=== PATIENT | female | born 1945 | race Caucasian/White ===

== ENCOUNTER 2017-07-20 18:07 | Emergency (ER) | payer MEDICARE, BC ==
[2017-07-20 18:20] VITALS: BP 150/61
--- NOTE | 2017-07-20 18:42 | ER Document Report ---
ED Medical Screen (RME) - General Chief Complaint: Swelling of Lower Extremity Stated Complaint: LEFT LEG PAIN Time Seen by Provider: 07/20/17 18:35 Mode of Arrival: Wheelchair Information source: Patient TRAVEL OUTSIDE OF THE [place] IN LAST 30 DAYS: No - HPI Patient complains to provider of: L leg pain and swelling Onset: Other - Pt noticed red area on anterior aspect of L leg a few days ago - - states L leg has gotten more painful and red since - Related Data Allergies/Adverse Reactions: Sulfa (Sulfonamide Antibiotics) Allergy (Verified 07/20/17 18:09) Home Medications: Current Home Medications Losartan Potassium [Losartan Potassium] 1 tab PO DAILY 07/20/17 [History] Past Medical History - Social History Chew tobacco use (# tins/day): No Frequency of alcohol use: None Drug Abuse: None Renal/ Medical History: Denies: Hx Peritoneal Dialysis - Immunizations Hx Diphtheria, Pertussis, Tetanus Vaccination: Yes Physical Exam - Vital signs Vitals: Temp Pulse Resp BP Pulse Ox 97.6 F 69 18 150/61 H 98 07/20/17 18:20 07/20/17 18:20 07/20/17 18:20 07/20/17 18:20 07/20/17 18:20 Course - Vital Signs Vital signs: Temp Pulse Resp BP Pulse Ox 97.6 F 69 18 150/61 H 98 07/20/17 18:20 07/20/17 18:20 07/20/17 18:20 07/20/17 18:20 07/20/17 18:20
[2017-07-20 19:16] LABS: ABSOLUTE BASOPHILS # (AUTO) 0.1 10^3/uL (0.0-0.2); ABSOLUTE EOSINOPHILS # (AUTO) 0.2 10^3/uL (0.0-0.6); ABSOLUTE LYMPHOCYTES (AUTO) 2.6 10^3/uL (0.5-4.7); ABSOLUTE MONOCYTES (AUTO) 0.9 10^3/uL (0.1-1.4); ABSOLUTE NEUT (AUTO) 3.8 10^3/uL (1.7-8.2); BASOPHILS % (AUTO) 1.4 % (0-2); EOSINOPHILS % (AUTO) 3.2 % (0-6); HEMATOCRIT 43.5 % (36.0-47.0); HEMOGLOBIN 14.7 g/dL (12.0-15.5); HGB HCT DIFFERENCE 0.6; LYMPHOCYTES % (AUTO) 34.3 % (13-45); MEAN CORPUSCULAR HGB CONC 33.8 g/dL (32.0-36.0); MEAN CORPUSCULAR VOLUME 95 fl (80-97); MONOCYTES % (AUTO) 11.4 % (3-13); RED CELL DISTRIBUTION WIDTH 13.4 % (11.5-14.0); SEGMENTED NEUTROPHILS % (AUTO) 49.7 % (42-78); WHITE BLOOD COUNT 7.6 10^3/uL (4.0-10.5)
--- NOTE | 2017-07-20 21:15 | RADIOLOGY REPORT (SQ) ---
EXAM DESCRIPTION: VENOUS UNILATERAL LOWER COMPLETED DATE/TIME: 07/20/2017 9:00 pm REASON FOR STUDY: L leg redness and swelling COMPARISON: None. TECHNIQUE: Dynamic and static chew scale and color images acquired of the left leg venous system. Se lected spectral images acquired with additional compression and augmentation maneuvers. The contralat eral common femoral vein and saphenofemoral junction were also imaged. Images stored on PACS. LIMITATIONS: None. FINDINGS: COMMON FEMORAL: Normal phasicity, compression and augmentation. No visualized echogenic ma terial on chew scale. No defects on color images. FEMORAL: Normal compression and augmentation. No visualized echogenic material on chew scale. No defe cts on color images. POPLITEAL: Normal compression, augmentation. No visualized echogenic material on chew scale. No defec ts on color images. CALF VESSELS: Normal compression, augmentation. No visualized echogenic material on chew scale. No de fects on color images. GSV and SSV: Normal compression, augmentation. No visualized echogenic material on chew scale. No def ects on color images. ANY DEEP VENOUS INSUFFICIENCY: Not evaluated. ANY EVIDENCE OF POPLITEAL CYST: No. OTHER: The patient- identified area of pain correlates to a cluster of thrombosed superficial varicos ities. CONTRALATERAL COMMON FEMORAL VEIN: Normal phasicity, compression and augmentation. No visualized echogenic material on chew scale. No de fects on color images. IMPRESSION: NO EVIDENCE OF DVT OR SVT IN THE LEFT LEG. THE PATIENT- IDENTIFIED AREA OF PAIN CORRELA JORDY TO A CLUSTER OF THROMBOSED SUPERFICIAL VARICOSITIES. TECHNICAL DOCUMENTATION: JOB ID: [id number] [employer]- All Rights Reserved
[2017-07-20] MEDS ORDERED: CEPHALEXIN 500 MG CAPSULE PO ONE (22:38)
--- NOTE | 2017-07-20 22:39 | ER Document Report ---
ED General - General Chief Complaint: Swelling of Lower Extremity Stated Complaint: LEFT LEG PAIN Time Seen by Provider: 07/20/17 18:35 Mode of Arrival: Wheelchair Information source: Patient Notes: This is a 72-year-old female that presents to the emergency room with erythema and tenderness along the anterior aspect of the left lower extremity. Patient denies any calf pain. Patient states that she does have chronic swelling of that extremity. Patient denies any chest pain or shortness of breath. TRAVEL OUTSIDE OF THE [place] IN LAST 30 DAYS: No - HPI Onset: Yesterday Onset/Duration: Gradual Quality of pain: Other - Tender to touch Severity: Mild Pain Level: Denies Associated symptoms: denies: Chest pain, Fever, Shortness of breath Exacerbated by: Denies Relieved by: Denies Similar symptoms previously: No Recently seen / treated by doctor: No - Related Data Allergies/Adverse Reactions: Sulfa (Sulfonamide Antibiotics) Allergy (Verified 07/20/17 18:09) Home Medications: Current Home Medications Losartan Potassium [Losartan Potassium] 1 tab PO DAILY 07/20/17 [History] Past Medical History - General Information source: Patient - Social History Smoking Status: Never Smoker Cigarette use (# per day): No Chew tobacco use (# tins/day): No Frequency of alcohol use: None Drug Abuse: None Lives with: Family Family History: None Patient has suicidal ideation: No Patient has homicidal ideation: No - Past Medical History Cardiac Medical History: Reports: Hx Hypertension Renal/ Medical History: Denies: Hx Peritoneal Dialysis Past Surgical History: Reports: Hx Cholecystectomy - Immunizations Hx Diphtheria, Pertussis, Tetanus Vaccination: Yes Review of Systems - Review of Systems Constitutional: denies: Chills, Fever EENT: No symptoms reported Cardiovascular: No symptoms reported Respiratory: No symptoms reported Gastrointestinal: No symptoms reported Genitourinary: No symptoms reported Female Genitourinary: No symptoms reported Musculoskeletal: See HPI Skin: See HPI Hematologic/Lymphatic: No symptoms reported Neurological/Psychological: No symptoms reported Physical Exam - Vital signs Vitals: Temp Pulse Resp BP Pulse Ox 97.6 F 69 18 150/61 H 98 07/20/17 18:20 07/20/17 18:20 07/20/17 18:20 07/20/17 18:20 07/20/17 18:20 Notes: Physical exam: GENERAL: HEAD: Atraumatic, normocephalic. EYES: Pupils equal round and reactive to light, extraocular movements intact, sclera anicteric, conjunctiva are normal. ENT: TMs normal, nares patent, oropharynx clear without exudates. Moist mucous membranes. NECK: Normal range of motion, supple without obvious mass or JVD. LUNGS: Breath sounds clear to auscultation bilaterally and equal. No wheezes rales or rhonchi. HEART: Regular rate and rhythm without murmurs, rubs or gallops. ABDOMEN: Soft, normoactive bowel sounds. No tenderness to palpation. No guarding, no rebound. No masses appreciated. EXTREMITIES: NEUROLOGICAL: Cranial nerves II through XII grossly intact. Normal speech, moving all extremities. PSYCH: Normal mood, normal affect. SKIN: Warm, Dry, normal turgor, no rashes or lesions noted. Course - Vital Signs Vital signs: Temp Pulse Resp BP Pulse Ox 97.6 F 69 18 150/61 H 98 07/20/17 18:20 07/20/17 18:20 07/20/17 18:20 07/20/17 18:20 07/20/17 18:20 - Laboratory Result Diagrams: 07/20/17 19:00 07/20/17 21:00 Laboratory results interpreted by me: 07/20/17 07/20/17 19:00 21:00 D-Dimer 0.63 H Sodium 146.1 H Chloride 110 H Est GFR (Non-Af Amer) 50 L AST 42 H - Diagnostic Test Radiology reviewed: Image reviewed, Reports reviewed - Lower extremity ultrasound shows no evidence of DVT Discharge - Discharge Clinical Impression: Cellulitis Condition: Stable Disposition: HOME, SELF-CARE Additional Instructions: As we discussed, the ultrasound showed no evidence of deep clots in the leg which is good. The ultrasound was suggestive of maybe some superficial phlebitis which is inflammation of the superficial veins. We are going to treat you just in case for an early cellulitis. For the next few days you could take a baby aspirin a day. Follow-up with your primary care doctor this week and bring a copy of today's lab tests as well as ultrasound report with you when you go. Return to the emergency room for any worsening pain, worsening redness, worsening swelling or any concerns or getting worse. Prescriptions: Cephalexin Monohydrate [Keflex 500 mg Capsule] 500 mg PO Q6H 7 Days #28 capsule Referrals: ARLETTE BOYER MD [Primary Care Provider] - Follow up as needed
[2017-07-20 22:56] LABS: ALANINE AMINOTRANSFERASE 22 U/L (9-52); ALKALINE PHOSPHATASE 90 U/L (38-126); ANION GAP 13 (5-19); ASPARTATE AMINO TRANSFERASE 42 U/L (14-36); BILIRUBIN,DIRECT 0.4 mg/dL (0.0-0.4); BILIRUBIN,TOTAL 0.8 mg/dL (0.2-1.3); BLOOD UREA NITROGEN 20 mg/dL (7-20); CALCIUM 9.6 mg/dL (8.4-10.2); CARBON DIOXIDE 23 mmol/L (22-30); CHLORIDE 110 mmol/L (98-107); CREATININE RESULT 1.07 mg/dL (0.52-1.25); GLUCOSE 90 mg/dL (75-110); POTASSIUM 4.3 mmol/L (3.6-5.0); SODIUM 146.1 mmol/L (137-145); TOTAL PROTEIN 7.4 g/dL (6.3-8.2)
== END 2017-07-20 23:51 | disposition home or self-care (01) ==
LOC: ER 18:07
DX: L03.90 Cellulitis, unspecified (principal); M79.605 Pain in left leg; Z88.2 Allergy status to sulfonamides; I10 Essential (primary) hypertension
CPT/HCPCS: 99284; 36415; 85025; 80053; 85379; 93971; A9270

== ENCOUNTER → 2017-10-11 | Outpatient (CLI) | payer MEDICARE, BC ==
[~2017-10-11] MED LIST: DIAZEPAM 5 MG TABLET ONE
--- NOTE | 2017-10-11 16:59 | RADIOLOGY REPORT (SQ) ---
EXAM DESCRIPTION: MRI LUMBAR SPINE WITHOUT COMPLETED DATE/TIME: 10/11/2017 2:12 pm REASON FOR STUDY: M54.16 RADICULOPATHY, LUMBAR REGION M54.16 RADICULOPATHY, LUMBAR REGION COMPARISON: None. TECHNIQUE: Sagittal and Axial imaging includes T1, T2, STIR and gradient echo sequences. Coronal T2/ HASTE imaging. LIMITATIONS: None. FINDINGS: VISUALIZED UPPER ABDOMEN: Limited evaluation. No acute or suspicious findings suggested. SEGMENTATION: The most inferior well-developed disc space is labeled L5-S1. ALIGNMENT: Convex rightward lumbar curvature VERTEBRAE: Intact. BONE MARROW: Normal. No marrow replacement or reactive changes. DISC SIGNAL: Diffuse decreased T2 weighted intervertebral disc signal POSTERIOR ELEMENTS: Generally intact. No pars defect evident. HARDWARE: None in the spine. CORD AND CONUS: Distal thoracic cord and conus are unremarkable. Conus is at the L1 level. No clump ing of lumbar nerve roots worrisome for old arachnoid adhesions. SOFT TISSUES: No aortic aneurysm seen. No bulky retroperitoneal adenopathy or mass. No paraspinal mas s or fluid. T10-11: Mild bilateral facet hypertrophy. No central or foraminal stenosis. T11-12: Mild bilateral facet hypertrophy. No central or foraminal stenosis. L1-L2: Mild bilateral facet hypertrophy. No central or foraminal stenosis. L2-L3: Asymmetric left foraminal and lateral disc bulging and asymmetric left-sided facet hypertrophy causes moderate to high-grade left foraminal narrowing and partial effacement of the fat around the exiting left L2 nerve root. Elsewhere at L2-3, no central stenosis or right foraminal narrowing is present. L3-L4: Mild diffuse posterior disc bulging is present with moderate bilateral facet and ligament hype rtrophy. Borderline central canal narrowing. No right foraminal narrowing. Mild inferior left fora lois narrowing without exiting L3 nerve root impingement. L4-L5: Mild diffuse posterior disc bulge, moderate bilateral facet and ligament hypertrophy. Borderl ine central canal narrowing. Mild bilateral inferior foraminal stenosis without exiting L4 nerve geremias t impingement. L5-S1: No significant spinal stenosis or exit foraminal stenosis. SACRUM: Visualized upper sacrum intact. OTHER: No other significant findings. IMPRESSION: Degenerative convex rightward lumbar curvature with moderate to high-grade left L2-3 for aminal stenosis. TECHNICAL DOCUMENTATION: JOB ID: [id number] [employer]- All Rights Reserved Reading location - IP/workstation name: [email or web address]
== END ==
LOC: RAD 12:36
PROVIDERS: ATTEND Physician Assistant
DX: M54.16 Radiculopathy, lumbar region (principal)
CPT/HCPCS: 72148; A9270

== ENCOUNTER 2019-09-19 23:47 | Emergency (ER) | payer MEDICARE, BC ==
[2019-09-20] MEDS ORDERED: KETOROLAC TROMETHAMINE INJ/PF 30 MG/1 ML SDV IV ONE (00:48)
[2019-09-20] MEDS ORDERED: ONDANSETRON HCL INJ/PF 4 MG/2 ML SDV IV ONE (00:48)
--- NOTE | 2019-09-20 00:48 | ER Document Report ---
ED Medical Screen (RME) - General Chief Complaint: Possible Kidney Stone Stated Complaint: POSSIBLE KIDNEY STONES Time Seen by Provider: 09/19/19 23:59 Primary Care Provider: CYNDI LYLE PA-C [Primary Care Provider] - Follow up as needed Mode of Arrival: Ambulatory Information source: Patient Notes: Patient received to triage room at 0047. Patient presents with 3-hour history of right flank pain, dysuria, now unable to urinate, cold chills and low abdominal pain. Patient reports she thinks she has either a kidney stone or a urinary tract infection. Patient denies any fevers. Exam: Tenderness across the low abdomen. I have greeted and performed a rapid initial assessment of this patient. A comprehensive ED assessment and evaluation of the patient, analysis of test results and completion of the medical decision making process will be conducted by additional ED providers. I have specifically instructed the patient or family members with the patient to immediately return to any nursing staff should anything change in the patient's condition or with their chief complaint. TRAVEL OUTSIDE OF THE [place] IN LAST 30 DAYS: No - Related Data Allergies/Adverse Reactions: Sulfa (Sulfonamide Antibiotics) Allergy (Verified 07/20/17 18:09) Past Medical History - Past Medical History Cardiac Medical History: Reports: Hx Hypertension Renal/ Medical History: Denies: Hx Peritoneal Dialysis Past Surgical History: Reports: Hx Cholecystectomy - Immunizations Hx Diphtheria, Pertussis, Tetanus Vaccination: Yes Physical Exam - Vital signs Vitals: Temp Pulse Resp BP Pulse Ox 97.4 F 81 18 156/64 H 97 09/20/19 00:24 09/20/19 00:24 09/20/19 00:24 09/20/19 00:24 09/20/19 00:24 Course - Vital Signs Vital signs: Temp Pulse Resp BP Pulse Ox 97.4 F 81 18 156/64 H 97 09/20/19 00:24 09/20/19 00:24 09/20/19 00:24 09/20/19 00:24 09/20/19 00:24 Doctor's Discharge - Discharge Referrals: CYNDI LYLE PA-C [Primary Care Provider] - Follow up as needed
[2019-09-20 02:34] LABS: ABSOLUTE BASOPHILS # (AUTO) 0.1 10^3/uL (0.0-0.2); ABSOLUTE LYMPHOCYTES (AUTO) 0.8 10^3/uL (0.5-4.7); ABSOLUTE MONOCYTES (AUTO) 0.3 10^3/uL (0.1-1.4); ABSOLUTE NEUT (AUTO) 8.4 10^3/uL (1.7-8.2); BASOPHILS % (AUTO) 0.5 % (0-2); HEMATOCRIT 46.2 % (36.0-47.0); HEMOGLOBIN 15.8 g/dL (12.0-15.5); LYMPHOCYTES % (AUTO) 8.2 % (13-45); MEAN CORPUSCULAR HEMOGLOBIN 32.1 pg (27.0-33.4); MEAN CORPUSCULAR HGB CONC 34.1 g/dL (32.0-36.0); MEAN CORPUSCULAR VOLUME 94 fl (80-97); PLATELET COUNT 239 10^3/uL (150-450); RED BLOOD COUNT 4.92 10^6/uL (3.72-5.28); RED CELL DISTRIBUTION WIDTH 13.1 % (11.5-14.0); SEGMENTED NEUTROPHILS % (AUTO) 88.3 % (42-78); TOTAL CELLS COUNTED % (AUTO) 100 %; WHITE BLOOD COUNT 9.5 10^3/uL (4.0-10.5)
[2019-09-20 02:46] LABS: APPEARANCE,URINE SLIGHTLY-CLOUDY; BILIRUBIN,URINE NEGATIVE (NEGATIVE); COLOR,URINE YELLOW; GLUCOSE, URINE NEGATIVE (NEGATIVE); KETONES,URINE 20 mg/dL (NEGATIVE); LEUKOCYTE ESTERASE,URINE TRACE (NEGATIVE); NITRITE,URINE NEGATIVE (NEGATIVE); PROTEIN,URINE NEGATIVE (NEGATIVE); URINE SPECIFIC GRAVITY 1.021; UROBILINOGEN,URINE NEGATIVE mg/dL (<2.0)
[2019-09-20 03:15] LABS: ALBUMIN 4.3 g/dL (3.5-5.0); ALKALINE PHOSPHATASE 90 U/L (38-126); ANION GAP 9 (5-19); ASPARTATE AMINO TRANSFERASE 33 U/L (14-36); BILIRUBIN,DIRECT 0.1 mg/dL (0.0-0.4); BILIRUBIN,TOTAL 0.9 mg/dL (0.2-1.3); BLOOD UREA NITROGEN 20 mg/dL (7-20); CALCIUM 9.6 mg/dL (8.4-10.2); CARBON DIOXIDE 23 mmol/L (22-30); CHLORIDE 107 mmol/L (98-107); GLUCOSE 127 mg/dL (75-110); POTASSIUM 4.7 mmol/L (3.6-5.0); TOTAL PROTEIN 7.8 g/dL (6.3-8.2)
[2019-09-20] MEDS ORDERED: MORPHINE SULFATE 10 MG/ML INJ IV ONE (04:13)
--- NOTE | 2019-09-20 04:18 | ER Document Report ---
ED GI/ - General Chief Complaint: Urinary Problem Stated Complaint: POSSIBLE KIDNEY STONES Time Seen by Provider: 09/19/19 23:59 Primary Care Provider: CYNDI LYLE PA-C [PHYSICIAN BUSINESS DEVELOPMENT SPECIALIST] - Follow up as needed Mode of Arrival: Ambulatory Notes: Patient is a 74-year-old female that comes emergency department for chief complaint of sudden onset right flank and right mid to lower abdominal pain that started this evening suddenly. She also states she vomited twice. She reports urinary hesitancy but denies dysuria. She denies fever/chills. She states she has had kidney stones in the past but not for many years. She did have lithotripsy and a stent performed previously as well. She has had a cholecystectomy. She has a history of hypertension but denies any other medical history otherwise. at bedside. TRAVEL OUTSIDE OF THE [place] IN LAST 30 DAYS: No - Related Data Allergies/Adverse Reactions: Sulfa (Sulfonamide Antibiotics) Allergy (Verified 07/20/17 18:09) Home Medications: losartan, potassium Past Medical History - General Information source: Patient - Social History Smoking Status: Never Smoker Frequency of alcohol use: None Drug Abuse: None Lives with: Family Family History: None Patient has suicidal ideation: No Patient has homicidal ideation: No - Past Medical History Cardiac Medical History: Reports: Hx Hypertension Renal/ Medical History: Reports: Hx Kidney Stones. Denies: Hx Peritoneal Dialysis Past Surgical History: Reports: Hx Cholecystectomy - Immunizations Hx Diphtheria, Pertussis, Tetanus Vaccination: Yes Review of Systems - Review of Systems Constitutional: No symptoms reported EENT: No symptoms reported Cardiovascular: No symptoms reported Respiratory: No symptoms reported Gastrointestinal: See HPI Genitourinary: See HPI Female Genitourinary: No symptoms reported Musculoskeletal: No symptoms reported Skin: No symptoms reported Hematologic/Lymphatic: No symptoms reported Neurological/Psychological: No symptoms reported Physical Exam - Vital signs Vitals: Temp Pulse Resp BP Pulse Ox 97.4 F 81 18 156/64 H 97 09/20/19 00:24 09/20/19 00:24 09/20/19 00:24 09/20/19 00:24 09/20/19 00:24 - Notes Notes: GENERAL: Alert, interacts well. No acute distress. HEAD: Normocephalic, atraumatic. EYES: Pupils equal, round, and reactive to light. Extraocular movements intact. ENT: Oral mucosa moist, tongue midline. Oropharynx unremarkable. Airway patent. LUNGS: Clear to auscultation bilaterally, no wheezes, rales, or rhonchi. No respiratory distress. HEART: Regular rate and rhythm. No murmur ABDOMEN: There is some mild generalized tenderness over the right abdomen, nonspecific, no guarding. Bowel sounds present throughout. GENITOURINARY: Deferred EXTREMITIES: Moves all 4 extremities spontaneously. No edema, normal radial and dorsalis pedis pulses bilaterally. No cyanosis. BACK: Right CVA tenderness. No cervical, thoracic, lumbar midline tenderness. No saddle anesthesia, normal distal neurovascular exam. Moves all extremities in full range of motion. NEUROLOGICAL: Alert and oriented x3. Normal speech. Cranial nerves II through XII grossly intact. PSYCH: Normal affect, normal mood. SKIN: Warm, dry, normal turgor. No rashes or lesions noted. Course - Re-evaluation Re-evalutation: Patient states that after Toradol and Zofran from triage she feels much better, pain is almost completely gone, after I gave her small amount of morphine symptoms completely resolved. CBC unremarkable, chemistry unremarkable, urine shows a few red blood cells and a few white blood cells but is otherwise nonspecific. CT performed, shows 2 mm right UVJ stone with some hydronephrosis. Also shows possible area which may represent "an unusual appendicolith" per radiology. Appendix visualized as normal. Patient does not have focal right lower quadrant tenderness on exam but has mild generalized tenderness in the right abdomen on my exam. She also had some right CVA tenderness. I discussed with Dr. Pinto. He feels that at this time patient can be discharged with close follow-up and strict return precautions for possible development of appendicitis but at this time it is felt her symptoms are from a kidney stone (acute onset of severe symptoms similar to prior kidney stones, responded almost completely to Toradol, visualized stone on scan on the same side). I did discuss the details with patient at length. Patient states she will follow-up with urology and she will return if she worsens in any way including signs of acute abdomen. states agreement with plan, stable at time of discharge. - Vital Signs Vital signs: Temp Pulse Resp BP Pulse Ox 97.9 F 72 16 118/47 L 97 09/20/19 06:46 09/20/19 06:46 09/20/19 06:46 09/20/19 06:46 09/20/19 06:46 - Laboratory Result Diagrams: 09/20/19 02:20 09/20/19 02:20 Laboratory results interpreted by me: 09/20/19 09/20/19 09/20/19 02:20 02:20 02:20 Hgb 15.8 H Lymph % (Auto) 8.2 L Absolute Neuts (auto) 8.4 H Seg Neutrophils % 88.3 H Glucose 127 H Urine Ketones 20 H Urine Blood MODERATE H Ur Leukocyte Esterase TRACE H Urine Ascorbic Acid 40 H Discharge - Discharge Clinical Impression: Ureterolithiasis, Right flank pain Abdominal pain Qualifiers: Abdominal location: generalized Qualified Code(s): R10.84 - Generalized abdominal pain Vomiting Qualifiers: Vomiting type: unspecified Vomiting Intractability: non-intractable Nausea presence: with nausea Qualified Code(s): R11.2 - Nausea with vomiting, un specified Condition: Stable Disposition: HOME, SELF-CARE Additional Instructions: You are passing a 2 mm kidney stone on the right side. This most likely will pass on its own. Please take the antibiotic as prescribed to prevent developing infection. Take the pain medication and nausea medication if needed, ibuprofen can help as well. I recommend [id number] stool softener such as MiraLAX to avoid constipation while taking the pain medication. Follow close with urology for additional management, see referral listed below and call for your first appointment. Return if you worsen in any way including developing/worsening abdominal pain, uncontrolled vomiting, fever, or any other concerning or worsening symptoms. [facility] [address] [place], [place] [id number] [facility] [address] [place] [id number] Prescriptions: Oxycodone HCl/Acetaminophen [Percocet 5-325 mg Tablet] 1 - 2 tab PO Q6HP PRN #15 tablet PRN Reason: Cephalexin Monohydrate [Keflex 500 mg Capsule] 500 mg PO BID 7 Days #14 capsule Ondansetron [Zofran Odt 4 mg Tablet] 1 - 2 tab PO Q4H PRN #15 tab.rapdis PRN Reason: For Nausea/Vomiting Referrals: CYNDI LYLE PA-C [PHYSICIAN BUSINESS DEVELOPMENT SPECIALIST] - Follow up as needed
--- NOTE | 2019-09-20 04:56 | RADIOLOGY REPORT (SQ) ---
CT abdomen and pelvis without contrast on 09/20/2019 at 4:31 AM CLINICAL INDICATION: Right lower quadrant pain, right back pain TECHNIQUE: Multiple axial images are obtained throughout the abdomen and pelvis without the administration of contrast. This exam was performed according to our departmental dose-optimization program, which includes automated exposure control, adjustment of the mA and/or kV according to patient size and/or use of iterative reconstruction technique. Total DLP is 788.82 mGy*cm. COMPARISON: None FINDINGS: Abdomen: There is minimal basilar atelectasis and/or scarring. The patient is status post cholecystectomy. There is mild right hydronephrosis and hydroureter to the level of a 2 mm right UVJ stone. There is right perinephric stranding related to the obstruction. There is a tiny nonobstructing stone in the lower pole of the left kidney. No other ureteral stones are noted. The unenhanced solid abdominal organs are otherwise unremarkable. Mild vascular calcifications are noted. There is no abdominal adenopathy. There is no free fluid or free air within the abdomen. There is mild diverticulosis. The abdominal portion of the GI tract is otherwise unremarkable. Pelvis: There is a moderate-sized rounded peripherally calcified abnormality at the appendiceal base may represent an appendicolith. The appendix is otherwise unremarkable. There is diverticulosis. There is no free fluid in the pelvis. Pelvic organs appear unremarkable by CT. There is no pelvic adenopathy. The pelvic portion of the GI tract is otherwise unremarkable. Degenerative changes and dextroscoliosis is noted in the lumbar spine. No acute bony abnormality is noted. IMPRESSION: 1. Mild right hydronephrosis and hydroureter to the level of a 2 mm right UVJ stone. 2. Tiny nonobstructing left renal stone. 3. Diverticulosis. 4. Unusual rounded peripherally calcified abnormality at the appendiceal base and partly within the cecum, this may represent large unusual appendicolith/fecalith. The appendix otherwise appears unremarkable.
[2019-09-20] MEDS ORDERED: HYDROCODONE/ACETAMINOPHEN 5-325 MG (6 TAB/ER DISP) PO PRN (06:07)
[2019-09-20] MEDS ORDERED: ONDANSETRON ODT 4 MG TAB (6 TAB/ER DISP) PO PRN (06:08)
[2019-09-20 06:49] VITALS: BP 118/47
== END 2019-09-20 06:49 | disposition home or self-care (01) ==
LOC: ER 23:47
DX: N20.1 Calculus of ureter (principal); R10.84 Generalized abdominal pain; R11.2 Nausea with vomiting, unspecified; R10.9 Unspecified abdominal pain; R10.30 Lower abdominal pain, unspecified; R11.10 Vomiting, unspecified; R39.11 Hesitancy of micturition; Z90.49 Acquired absence of other specified parts of digestive tract; R10.31 Right lower quadrant pain; I10 Essential (primary) hypertension; Z88.2 Allergy status to sulfonamides; Z87.442 Personal history of urinary calculi
CPT/HCPCS: 99284; 96374; 96375; 36415; 87086; 83690; 85025; 80053; 81001; 74176; J1885; J2270; J2405; A9270 ×2